=== PATIENT | male | born 1995 | race African-American/Black ===

== ENCOUNTER 2019-01-17 18:33 | Emergency (ER) | payer MEDICAID, OTHER ==
[~2019-01-17] VITALS: Ht 190.5 cm; Wt 74.0 kg
[2019-01-17] MEDS ORDERED: IBUPROFEN 800MG TABLET PO ONE (23:15)
[2019-01-18 00:30] VITALS: BP 113/65
== END 2019-01-18 00:30 | disposition home or self-care (01) ==
LOC: ER 18:33
DX: S16.1XXA Strain of muscle, fascia and tendon at neck level, initial encounter (principal); M54.2 Cervicalgia; M54.5 Low back pain; J06.9 Acute upper respiratory infection, unspecified; V49.19XA Passenger injured in collision with other motor vehicles in nontraffic accident, initial encounter; Y93.89 Activity, other specified; Y92.89 Other specified places as the place of occurrence of the external cause; Y99.8 Other external cause status
CPT/HCPCS: 99283